=== PATIENT | male | born 1995 | race Caucasian/White ===

== ENCOUNTER 2020-01-08 01:37 | Emergency (ER) | payer SELFPAY ==
[2020-01-08] MEDS ORDERED: Sodium Chloride 0.9% 2.5 ML Syringe FLUSH PRN (01:47)
[2020-01-08] MEDS ORDERED: Sodium Chloride 0.9% 10 ML Syringe FLUSH PRN (01:47)
--- NOTE | 2020-01-08 01:51 | EDM.PDOC ---
ED HPI GENERAL MEDICAL PROBLEM <Grayson Grier - Last Filed: 01/08/20 07:54> <Jeremie Sun - Last Filed: 01/09/20 08:14> - General Chief Complaint: Trauma Stated Complaint: AMB. Time Seen by Provider: 01/08/20 01:45 - History of Present Illness INITIAL COMMENTS - FREE TEXT/NARRATIVE: History of present illness: Please with the witnesses and said the patient was coming out of a bar and got into an enclosed area with a fence it was 4 feet or so. He tried to climb up and fell off injuring his left leg and was unable to walk. He is obviously quite intoxicated. The patient had severe pain in the leg at the scene. When he came to me he had a deformity in the medial left knee and he had exquisite tenderness. He also complained of left arm pain but when we tried to examine him he got combative and took swings at us. We had not cleared his C-spine and he was too intoxicated to be reliable. Police came and cuffed him for me so that we could examine him. On exam he had no other obvious injury but his beh avior suggest that he is either terribly intoxicated or has a head injury. Cervical collar was placed and the patient will possibly have to undergo RSI to have thorough evaluation. As it turned out I was able to sedate the patient without having intubate him and able to get test that were needed. Under the circumstances the patient came to us and asked for help because of pain in his knee but he was clearly unable to understand the importance of making sure he did not have any significant injury. After he found out that we wanted to examine him from head to toe and make sure he did not have any other injuries he said that he wanted to refuse care. He intermittently does. He woke up and was violent. He sometimes thrashed about. At times he asked for help because he had pain in his left arm and pain in his left leg. At times he said he did not want help. The patient was clearly irrational and did not have the capacity to understand the possible severity of his illness. With the nursing staff law enforcement as witnesses I substituted my judgment for his because he did not have the capacity to understand what a reasonable person would want to know if he had a significant life-threatening head or neck injury or significant limb threatening fracture. Under sedation I did an evaluation of the areas that I thought were most at risk for significant injury. [] Review of systems: As per history of present illness and below otherwise all systems reviewed and negative. Past medical history: As per history of present illness and as reviewed below otherwise noncontribut ory. Surgical history: As per history of present illness and as reviewed below otherwise noncontributory. Social history: No reported history of drug or alcohol abuse. Family history: As per history of present illness and as reviewed below otherwise noncontributory. Physical exam: Constitutional - well developed, well-nourished and in no acute distress HEENT - normocephalic, no evidence of trauma - external nose and mouth normal - no mass in neck and no JVD - mucosae moist EYES - full EOM, PERRL, no icterus - no evidence of inflammation, injection, or drainage Respiratory - no respiratory distress, equal bilateral expansion, lungs clear to auscultation and no abnormal lung sounds Cardiovascular - Regular Rhythm with S1 and S2 appreciated and no murmur, gallop or rub. GI - abdomen soft without distension or organomegaly - normal bowel sounds - no guard or rebound Musculoskeletal deformity in the proximal medial left leg no gross deformity of long bones or joints - no tenderness, swelling or edema Neurologic -as above but inappropriate and combative. Oriented only to circumstances and person not to place or time- CN II-XII grossly intact - motor sensory and coordination symmetrically normal Psychiatric -patient complaining of pain in the left leg and pain in the left arm. When examined the patient begins to thrash and swinging us and try to injure us. Please came and cuffed him so that we could do a further evaluation. Hematologic - No petechiae or purpura - mucosa appropriate color and sclera not pale - normal nail bed color and refill Integument - no rash or evidence of trauma - normal turgor Diagnostics: [] Therapeutics: [] Impression: [] Plan: [] Definitive disposition and diagnosis as appropriate pending reevaluation and review of above. (Jeremie Sun) - Related Data Allergies Allergy/AdvReac Type Severity Reaction Status Date / Time Unable to Assess Allergy Unverified 01/08/20 01:50 Home Meds: Home Meds . [Unable to Verify Home Med List] 01/08/20 [History] Review of Systems - Review of Systems Review Of Systems: Comprehensive ROS is negative, except as noted in HPI. <RickyGrayson flores - Last Filed: 01/08/20 07:54> - Review of Systems Review Of Systems: Comprehensive ROS is negative, except as noted in HPI. <SunJeremie gleason - Last Filed: 01/09/20 08:14> ED EXAM, GENERAL - Physical Exam Exam: See Below <Grayson Grier - Last Filed: 01/08/20 07:54> - Physical Exam Exam: See Below <Jeremie Sun - Last Filed: 01/09/20 08:14> - Physical Exam Free Text/Narrative:: My physical exam is in the HPI (Jeremie Sun) Course <Grayson Grier - Last Filed: 01/08/20 07:54> <Jeremie Sun - Last Filed: 01/09/20 08:14> - Vital Signs Text/Narrative:: Addendum 01/09/2020 At the end of my shift yesterday, I turned the patient over to my partner, Dr. Grier for reassessment and disposition. The patient had arrived intoxicated, combative, and having suffered a mechanism of injury that made it reasonably possible he might suffer life threatening head or neck injury and most likely he had a limb injury which would pose a threat to the limb. He, unfortunately, was unable to have the capacity to understand the risk he took by delaying our evaluation for these injuries. I assumed decision making capacity until an emergency medical screening could be done, which included sedating him for testing to see if a time sensitive intervention was needed to save his life or leg. Subsequently, in combination with his extreme alcohol intoxication and the medication, it was not possible to assess him completely for discharge at the end of my shift. Dr. Grier agreed to monitor him until safe discharge could be acoomplished. JR Corinne BELLA 2:15 AM at that this patient was witnessed to fall off a fence and complained of injury he then became so inappropriate it is obvious he does not have any idea what is going on and what we need to do for him. He is unable to have the capacity to refuse care. He is tried to kick the police officers in the head and so I am going to sedate him and go ahead make sure he does not have a head or neck injury. At that time I will release him to half-way. 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 Pelvic x-ray and chest x-ray do not show any acute injury. CT of the head neck will be performed before he is released. 323 after the medications I administered the patient stop trying to kick the sawmill equipment operator and stop trying to punch the nurse and myself. He is getting a CT now. This patient was witnessed to have a fall off a fence. If he is not injured I'll release him to detox with the Police Department. 50 6 AM sleeping well. Desats when his tongue falls back. Jaw thrust recovers from 73 to 94% on 2 L nasal cannula. Nasal trumpet requested. Critical care note-this patient had the potential to have life-threatening injury but did not have capacity to understand this and in fact was combative and trying to resist our attempts to make sure that he was safe. In order to safely evaluate him I had to sedate him. Hopefully I can sedate him enough to get a good evaluation of his injuries and find a cause for his erratic behavior without having to intubate him. The patient required my attention, review of the x-rays, note making, interaction with law enforcement and the nursing staff for a total of 47 minutes not including any billable procedures. 5:27 AM patient in no acute distress resting. Patient has a nasal trumpet in place. Oxygen saturation 100%. Pression is that he can be cleared to be taken to detox or half-way depending on law enforcement wants to do about the fact that he made some when he attempts to injure myself the nurse and the law enforcement officers. (Jeremie Sun) Last Recorded V/S: Last Vital Signs Temp 97.8 F 01/08/20 01:37 Pulse 120 H 01/08/20 13:35 Resp 16 01/08/20 13:35 BP 102/58 L 01/08/20 13:35 Pulse Ox 99 01/08/20 13:35 - Orders/Labs/Meds Labs: Laboratory Tests 01/08/20 01/08/20 01/08/20 Range/Units 03:36 04:35 04:35 WBC 6.77 (4.0-11.0) K/uL RBC 4.74 (4.50-5.90) M/uL Hgb 14.3 (13.0-17.0) g/dL Hct 41.7 (38.0-50.0) % MCV 88.0 (80.0-98.0) fL MCH 30.2 (27.0-32.0) pg MCHC 34.3 (31.0-37.0) g/dL RDW Std Deviation 39.9 (28.0-62.0) fl RDW Coeff of Kaenu 13 (11.0-15.0) % Plt Count 236 (150-400) K/uL MPV 9.90 (7.40-12.00) fL Neut % (Auto) 67.0 (48.0-80.0) % Lymph % (Auto) 26.6 (16.0-40.0) % [place] % (Auto) 5.5 (0.0-15.0) % Eos % (Auto) 0.6 (0.0-7.0) % Baso % (Auto) 0.3 (0.0-1.5) % Neut # (Auto) 4.5 (1.4-5.7) K/uL Lymph # (Auto) 1.8 (0.6-2.4) K/uL [place] # (Auto) 0.4 (0.0-0.8) K/uL Eos # (Auto) 0.0 (0.0-0.7) K/uL Baso # (Auto) 0.0 (0.0-0.1) K/uL Sodium 147 (136-148) mmol/L Potassium 3.6 (3.5-5.1) mmol/L Chloride 110 H (98-107) mmol/L Carbon Dioxide 26.0 (21.0-32.0) mmol/L BUN 14 (7.0-18.0) mg/dL Creatinine 1.1 (0.8-1.3) mg/dL Est Cr Clr Drug Dosing TNP Estimated GFR (MDRD) > 60.0 ml/min Glucose 133 H (74-106) mg/dL POC Glucose 148 H (60-110) mg/dL Calcium 8.0 L (8.5-10.1) mg/dL Total Bilirubin 0.2 (0.2-1.0) mg/dL AST 29 (15-37) IU/L ALT 37 (14-63) IU/L Alkaline Phosphatase 80 (46-116) U/L Total Protein 7.6 (6.4-8.2) g/dL Albumin 4.2 (3.4-5.0) g/dL Globulin 3.4 (2.6-4.0) g/dL Albumin/Globulin Ratio 1.2 (0.9-1.6) Ethyl Alcohol 269 mg/dL Meds: Medications Discontinued Medications Generic Name Dose Route Start Last Admin Trade Name Freq PRN Reason Stop Dose Admin Diphenhydramine HCl 50 mg 01/08/20 02:07 01/08/20 02:27 Benadryl IVPUSH 01/08/20 02:08 Not Given ONETIME ONE Diphenhydramine HCl 50 mg 01/08/20 02:13 01/08/20 02:25 Benadryl IM 01/08/20 02:14 50 mg ONETIME ONE Administration Haloperidol Lactate 2 mg 01/08/20 02:06 01/08/20 02:27 Haldol IM 01/08/20 02:07 Not Given ONETIME ONE Haloperidol Lactate 10 mg 01/08/20 02:12 01/08/20 02:27 Haldol IM 01/08/20 02:13 10 mg ONETIME ONE Administration Sodium Chloride 1,000 mls @ 999 mls/hr 01/08/20 05:08 01/08/20 05:34 Normal Saline IV 01/08/20 06:08 999 mls/hr .BOLUS ONE Administration Lorazepam 2 mg 01/08/20 02:07 01/08/20 02:27 Ativan IVPUSH 01/08/20 02:08 Not Given ONETIME ONE Lorazepam 4 mg 01/08/20 02:13 01/08/20 02:25 Ativan IM 01/08/20 02:14 4 mg ONETIME ONE Administration Lorazepam 2 mg 01/08/20 02:55 01/08/20 02:55 Ativan IVPUSH 01/08/20 02:56 2 mg ONETIME ONE Administration Sodium Chloride 10 ml 01/08/20 01:47 01/08/20 08:25 Saline Flush FLUSH 10 ml ASDIRECTED PRN Administration Keep Vein Open Sodium Chloride 2.5 ml 01/08/20 01:47 01/08/20 08:25 Saline Flush FLUSH 2.5 ml ASDIRECTED PRN Administration Keep Vein Open - Re-Assessments/Exams Free Text/Narrative Re-Assessment/Exam: 01/08/20 07:54 Patient care signed up to reassess for clinic sobriety. Will monitor, walk test, and anticipate d/c to PD custody (Grayson Grier) Departure - Departure Time of Disposition: 07:55 Condition: Good <Grayson Grier - Last Filed: 01/08/20 07:54> <Jeremie Sun - Last Filed: 01/09/20 08:14> - Departure Disposition: Home, Self-Care 01 Clinical Impression: Contusion of left lower leg, initial encounter, Altered level of consciousness, Struck fence with fall, Alcohol intoxication, Alcohol intoxication delirium - Discharge Information Instructions: Alcohol Use Disorder Referrals: PCP,None [Primary Care Provider] - Forms: ED Department Discharge Additional Instructions: [facility] - [facility] [address] [place] [address] [id number] [facility] [address] [place] [id number] The following information is given to patients seen in the emergency department who are being discharged to home. This information is to outline your options for follow-up care. We provide all patients seen in our emergency department with a follow-up referral. The need for follow-up, as well as the timing and circumstances, are variable depending upon the specifics of your emergency department visit. If you don't have a primary care physician on staff, we will provide you with a referral. We always advise you to contact your personal physician following an emergency department visit to inform them of the circumstance of the visit and for follow-up with them and/or the need for any referrals to a consulting specialist. The emergency department will also refer you to a specialist when appropriate. This referral assures that you have the opportunity for follow-up care with a specialist. All of these measure are taken in an effort to provide you with optimal care, which includes your follow-up. Under all circumstances we always encourage you to contact your private physician who remains a resource for coordinating your care. When calling for follow-up care, please make the office aware that this follow-up is from your recent emergency room visit. If for any reason you are refused follow-up, please contact the [facility] Emergency Department at and asked to speak to the emergency department charge nurse.
[2020-01-08] MEDS ORDERED: Haloperidol Lactate 5 MG/ML SDV IM ONE ×2 (02:06→02:12)
[2020-01-08] MEDS ORDERED: diphenhydrAMINE 50 MG/ML SDV IVPUSH ONE (02:07)
[2020-01-08] MEDS ORDERED: LORazepam 2 MG/ML SDV IVPUSH ONE ×2 (02:07→02:55)
[2020-01-08] MEDS ORDERED: diphenhydrAMINE 50 MG/ML SDV IM ONE (02:13)
[2020-01-08] MEDS ORDERED: LORazepam 2 MG/ML SDV IM ONE (02:13)
--- NOTE | 2020-01-08 02:48 | CR ---
Indication: Injury Technique: Two views, 4 films Comparison: None Findings: Bones: No evidence of fracture. 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 Joint spaces: Unremarkable. Soft tissues: Distal anterior soft tissue swelling. Dictated by Jamie Pompa MD @ Jan 08 2020 2:45AM Signed by Dr. Jamie Pompa @ Jan 08 2020 2:47AM
--- NOTE | 2020-01-08 02:51 | CR ---
Indication: Injury, intoxicated Technique: Chest 1 view Comparison: None Findings/Impression: Cardiovascular and mediastinum: Heart size and vasculature are normal in caliber and appearance. Lungs and pleural space: Lungs are clear. No sign of infiltrate or mass. No sign of pleural effusion. No pneumothorax. Bones and soft tissues: No acute findings. Dictated by Jamie Pompa MD @ Jan 08 2020 2:48AM Signed by Dr. Jamie Pompa @ Jan 08 2020 2:49AM
--- NOTE | 2020-01-08 02:51 | CR ---
Indication: Injury, intoxicated Technique: One view Comparison: None Findings: A backboard is present overlying the pelvis obscuring some fine bony detail. No definite fracture. No evidence of dislocation. Sacroiliac joints grossly symmetric. Dictated by Jamie Pompa MD @ Jan 08 2020 2:47AM Signed by Dr. Jamie Pompa @ Jan 08 2020 2:48AM
[2020-01-08 05:01] LABS: BLOOD UREA NITROGEN,BUN 14 mg/dL (7.0-18.0); CHLORIDE,CL 110 mmol/L (98-107); GLUCOSE RANDOM 133 mg/dL (74-106); POTASSIUM,K 3.6 mmol/L (3.5-5.1); SODIUM,NA 147 mmol/L (136-148)
[2020-01-08] MEDS ORDERED: Sodium Chloride 0.9% 1,000 ML IV ONE (05:08)
--- NOTE | 2020-01-08 05:19 | CT ---
CT HEAD WITHOUT CONTRAST, 01/08/2020 CLINICAL HISTORY: Head injury. Intoxication. TECHNIQUE: CT head without contrast. FINDINGS: CT images demonstrate no evidence of a subdural or epidural hematoma. There is no evidence of subarachnoid hemorrhage or intraparenchymal bleeding. The cerebral ventricles have a normal size and midline configuration. There is normal green-white differentiation with no evidence of localized edema or tissue infarction. The mastoid air cells and middle ear cavities are clear. The paranasal sinuses are clear. IMPRESSION: No evidence of intracranial hemorrhage, infarct or mass effect. Please note that all CT scans at this facility use dose modulation, iterative reconstruction and/or weight-based dosing when appropriate to reduce radiation dose to as low as reasonably achievable. Jeff Mcmullen M.D. Body/Diagnostic Radiologist [email or web address] Transcribed: 5:14 am DW/Dictated by: Jeff Mcmullen MD @ 01/08/2020 5:02:00 AM (Electronically Signed)
--- NOTE | 2020-01-08 05:25 | CT ---
CT CERVICAL SPINE WITHOUT CONTRAST, 01/08/2020 CLINICAL HISTORY: Injury. Intoxicated. TECHNIQUE: A CT volumetric acquisition was performed of the cervical spine without IV contrast. FINDINGS: Image quality is degraded secondary to patient motion. The cervical vertebra appear anatomically aligned on the sagittal and coronal reformations. No fractures are identified and there is no evidence of vertebral subluxation. The facet joints show anatomic alignment. The disc spaces are of normal width. There is no evidence of a epidural or paraspinal hematoma. IMPRESSION: No evidence of fracture or subluxation within the cervical spine. Please note that all CT scans at this facility use dose modulation, iterative reconstruction and/or weight-based dosing when appropriate to reduce radiation dose to as low as reasonably achievable. Jeff Mcmullen M.D. Body/Diagnostic Radiologist [email or web address] Transcribed: 5:20 am DW/Dictated by: Jeff Mcmullen MD @ 01/08/2020 5:05:00 AM (Electronically Signed)
== END 2020-01-08 13:46 | disposition home or self-care (01) ==
LOC: MW.ED 01:37
DX: S80.12XA Contusion of left lower leg, initial encounter (principal); F10.121 Alcohol abuse with intoxication delirium; R40.1 Stupor; W22.8XXA Striking against or struck by other objects, initial encounter
CPT/HCPCS: 36415; 70450; 71045; 72125; 72170; 73590; 80053; 80307; 82962; 85025; 96361; 96372; 96374; 99285; J1200; J1630; J2060; J7030; 99291